=== PATIENT | male | born 1975 | race Hispanic/Latino ===

== ENCOUNTER → 2017-07-22 | Outpatient (CLI) | payer SELFPAY ==
[~2017-07-22] MED LIST: BUME2TAB18 PO; CYAN100099 PO; FOLI0.8T PO; LACO200T2 PEG; LACT10SO8 PEG; LORA2TAB2 PEG; MAGN400T25 PO; METO-408 PEG; ONDA4TAB4 PEG; PANT40SU PEG; PHEN50TA2 PEG; POTA20TA82 PEG; PROP10TA72 PO; SPIR25TA PEG; THIA100T8 PO; VIT500LI PEG; ZINC220C6 PO; [UNRECOGNIZED DRUG - CODE] PEG
== END | disposition home or self-care (01) ==
LOC: RAH 16:00
PROVIDERS: ATTEND Internal Medicine
DX: Z93.1 Gastrostomy status (principal)
CPT/HCPCS: 74018; Q9963

== ENCOUNTER 2017-12-25 07:27 | Emergency (ER) | payer BC ==
[~2017-12-25 07:27] MED LIST changes: -THIA100T8 PO; +THIA100T91 PO
[2017-12-25] MEDS ORDERED: DIATR MEGLU/DIATRIZOATE SODIUM 30 ML BOTTLE ONE (08:05)
== END 2017-12-25 09:41 | disposition home or self-care (01) ==
LOC: EDH 07:27
DX: Z43.1 Encounter for attention to gastrostomy (principal)
CPT/HCPCS: 43760; 74018; 99284; Q9963

== ENCOUNTER → 2018-12-09 | Outpatient (CLI) | payer MEDICARE ==
[~2018-12-09] MED LIST changes: +HONEY 1 APPL/ML TUBE TP ONE
[2018-12-09 13:52] VITALS: BP 168/101
== END | disposition home or self-care (01) ==
LOC: WHH 08:45
PROVIDERS: ATTEND Surgery
DX: L89.893 Pressure ulcer of other site, stage 3 (principal); G82.20 Paraplegia, unspecified; G40.909 Epilepsy, unspecified, not intractable, without status epilepticus; Z93.1 Gastrostomy status
CPT/HCPCS: 11042; A4450; G0463

== ENCOUNTER → 2018-12-31 | Outpatient (CLI) | payer MEDICARE ==
[~2018-12-31] MED LIST changes: -HONEY 1 APPL/ML TUBE TP ONE; +LIDOCAINE HCL 2% JELLY 5 ML TP ONE
[2018-12-31 12:29] VITALS: BP 89/55
== END | disposition home or self-care (01) ==
LOC: WHH 09:30
PROVIDERS: ATTEND Surgery
DX: L89.893 Pressure ulcer of other site, stage 3 (principal); G40.909 Epilepsy, unspecified, not intractable, without status epilepticus; G82.20 Paraplegia, unspecified; S09.90XD Unspecified injury of head, subsequent encounter; Z93.1 Gastrostomy status; X58.XXXD Exposure to other specified factors, subsequent encounter
CPT/HCPCS: 11042; A6209

== ENCOUNTER → 2019-01-06 | Outpatient (CLI) | payer MEDICARE ==
[2019-01-06 15:01] VITALS: BP 116/69
== END | disposition home or self-care (01) ==
LOC: WHH 14:00
PROVIDERS: ATTEND Surgery
DX: L89.893 Pressure ulcer of other site, stage 3 (principal); G40.909 Epilepsy, unspecified, not intractable, without status epilepticus; G82.20 Paraplegia, unspecified; S09.90XD Unspecified injury of head, subsequent encounter; Z93.1 Gastrostomy status; X58.XXXD Exposure to other specified factors, subsequent encounter
CPT/HCPCS: 11042; A6209

== ENCOUNTER → 2019-01-27 | Outpatient (CLI) | payer MEDICARE ==
[~2019-01-27] MED LIST changes: -BUME2TAB18 PO; +BUME2TAB5 PO; -LIDOCAINE HCL 2% JELLY 5 ML TP ONE; +LIDOCAINE/PRILOCAINE CREAM 5GM TUBE TP ONE
[2019-01-27 16:09] VITALS: BP 149/94
== END | disposition home or self-care (01) ==
LOC: WHH 14:00
PROVIDERS: ATTEND Surgery
DX: L89.893 Pressure ulcer of other site, stage 3 (principal); S09.90XA Unspecified injury of head, initial encounter; G40.909 Epilepsy, unspecified, not intractable, without status epilepticus; G82.20 Paraplegia, unspecified; Z93.1 Gastrostomy status; X58.XXXA Exposure to other specified factors, initial encounter; Y93.89 Activity, other specified; Y92.89 Other specified places as the place of occurrence of the external cause; Y99.8 Other external cause status
CPT/HCPCS: A6209; G0463; J3490

== ENCOUNTER → 2019-02-10 | Outpatient (CLI) | payer MEDICARE ==
[~2019-02-10] MED LIST changes: -LIDOCAINE/PRILOCAINE CREAM 5GM TUBE TP ONE
[2019-02-10 15:07] VITALS: BP 107/59
== END | disposition home or self-care (01) ==
LOC: WHH 14:30
PROVIDERS: ATTEND Surgery
DX: L89.893 Pressure ulcer of other site, stage 3 (principal); S09.90XD Unspecified injury of head, subsequent encounter; G40.909 Epilepsy, unspecified, not intractable, without status epilepticus; G82.20 Paraplegia, unspecified; Z93.1 Gastrostomy status; X58.XXXD Exposure to other specified factors, subsequent encounter
CPT/HCPCS: A6209; G0463

== ENCOUNTER → 2019-03-03 | Outpatient (CLI) | payer MEDICARE ==
[~2019-03-03] MED LIST changes: +LIDOCAINE/PRILOCAINE CREAM 5GM TUBE TP ONE
[2019-03-03 15:08] VITALS: BP 158/93
== END | disposition home or self-care (01) ==
LOC: WHH 14:00
PROVIDERS: ATTEND Surgery
DX: L89.893 Pressure ulcer of other site, stage 3 (principal); S09.90XD Unspecified injury of head, subsequent encounter; G40.909 Epilepsy, unspecified, not intractable, without status epilepticus; G82.20 Paraplegia, unspecified; Z93.1 Gastrostomy status; X58.XXXD Exposure to other specified factors, subsequent encounter
CPT/HCPCS: A6022; G0463; J3490; 11042

== ENCOUNTER → 2019-03-24 | Outpatient (CLI) | payer MEDICARE ==
[~2019-03-24] MED LIST changes: -LIDOCAINE/PRILOCAINE CREAM 5GM TUBE TP ONE
[2019-03-24 14:00] VITALS: BP 109/67
== END | disposition home or self-care (01) ==
LOC: WHH 14:00
PROVIDERS: ATTEND Surgery
DX: L89.613 Pressure ulcer of right heel, stage 3 (principal); S09.90XD Unspecified injury of head, subsequent encounter; G40.909 Epilepsy, unspecified, not intractable, without status epilepticus; G82.20 Paraplegia, unspecified; Z93.1 Gastrostomy status; X58.XXXD Exposure to other specified factors, subsequent encounter
CPT/HCPCS: A6213; G0463